=== PATIENT | female | born 1960 | race Caucasian/White ===

== ENCOUNTER 2017-10-05 20:27 | Inpatient (IN) | payer MEDICAID ==
[~2017-10-05] VITALS: Ht 172.7 cm; Wt 84.8 kg
[2017-10-05 20:39] VITALS: BP 103/75
[2017-10-05] MEDS ORDERED: Cyclobenzaprine 10mg Tab ORAL ONE (21:15)
--- NOTE | 2017-10-05 22:00 | Diagnostic Imaging Report ---
EXAM: XR Lumbar Spine, 2 or 3 Views CLINICAL HISTORY: PAIN TECHNIQUE: Frontal and lateral views of the lumbar spine. COMPARISON: No relevant prior studies available. FINDINGS: Vertebrae: Age-indeterminate compression deformity of L1 with approximately 50% height loss. Question fracture through the L2 vertebral body without significant height loss. Multilevel degenerative changes. Mild scoliosis. Normal alignment. Disc spaces: No acute findings. No significant narrowing. Soft tissues: Unremarkable. Vasculature: Phleboliths noted within the pelvis. IMPRESSION: 1. Age-indeterminate compression deformity of L1 with approximately 50% height loss. 2. Question fracture through the L2 vertebral body without significant height loss.
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
[2017-10-05 22:44] LABS: APPEARANCE,URINE CLEAR; BILIRUBIN, URINE NEGATIVE (NEGATIVE); COLOR,URINE PALE YELLOW; GLUCOSE, URINE (UA) NEGATIVE (NEGATIVE); KETONES,URINE NEGATIVE (NEGATIVE); LEUKOCYTE ESTERASE ,URINE NEGATIVE (NEGATIVE); NITRITE,URINE NEGATIVE (NEGATIVE); PH,URINE 6 (4.5-8.0); PROTEIN,URINE NEGATIVE (NEGATIVE); UROBILINOGEN,URINE NORMAL MG/DL (0.0-1.0)
[2017-10-05] MEDS ORDERED: LORazepam 1mg tab ORAL ONE (23:00)
[2017-10-06 00:07] LABS: EOSINOPHILS % (AUTO) 0.7 % (0.0-3.0); HEMATOCRIT 35.6 % (37.0-47.0); HEMOGLOBIN 12.2 G/DL (12.0-16.0); LYMPHOCYTES % (AUTO) 49.6 % (20.0-45.0); MEAN CORPUSCULAR VOLUME 107 FL (80-99); MONOCYTES % (AUTO) 5.4 % (1.0-10.0); NEUTROPHILS % (AUTO) 42.3 % (45.0-75.0); PLATELET COUNT 168 K/UL (150-450); RED BLOOD COUNT 3.32 M/UL (4.20-5.40); RED CELL DISTRIBUTION WIDTH 12.9 % (11.6-14.8); WHITE BLOOD COUNT 9.5 K/UL (4.8-10.8)
[2017-10-06 00:10] LABS: ANION GAP 9 mmol/L (5-15); BLOOD UREA NITROGEN 26 mg/dL (7-18); CALCIUM 7.9 MG/DL (8.5-10.1); CARBON DIOXIDE 27 MMOL/L (21-32); CHLORIDE 105 MMOL/L (98-107); CREATININE 0.9 MG/DL (0.55-1.30); POTASSIUM 3.8 MMOL/L (3.5-5.1); SODIUM 141 MMOL/L (136-145)
[2017-10-06 00:16] LABS: ALANINE AMINOTRANSFERASE 19 U/L (12-78); ALBUMIN 3.4 G/DL (3.4-5.0); ALBUMIN/GLOBULIN RATIO 1.4 (1.0-2.7); ALKALINE PHOSPHATASE 58 U/L (46-116); ASPARTATE AMINO TRANSFERASE 14 U/L (15-37); BILIRUBIN,TOTAL 0.3 MG/DL (0.2-1.0)
[2017-10-06 01:30] VITALS: BP 125/79
[2017-10-06 08:00] VITALS: BP 147/76
[2017-10-06] MEDS ORDERED: Acetaminophen 650 MG SUPP RECTAL PRN ×2 (08:15)
[2017-10-06] MEDS ORDERED: Morphine Sulfate 2mg/ml Inj IVP PRN ×3 (08:30→19:00)
[2017-10-06] MEDS ORDERED: Miralax 17gm pkt ORAL PRN (09:00)
[2017-10-06] MEDS: Docusate 100mg cap ORAL SCH ×3 (09:09→20:06)
[2017-10-06 11:56] VITALS: BP 140/92
[2017-10-06] MEDS: Heparin 5000 units/ml inj SUBQ SCH ×3 (13:23→22:51)
[2017-10-06 16:00] VITALS: BP 168/98
--- NOTE | 2017-10-06 18:11 | History & Physical ---
History and Physical History & Physicial Dictated for Int Med-Dr Marte no. [id number]. Robb Johnson MD Oct 06, 2017 18:11
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
[2017-10-06 20:00] VITALS: BP 155/92
[2017-10-06] MEDS ORDERED: Milk of Magnesia 30ml Ud ORAL PRN (21:00)
[2017-10-06] MEDS: Morphine Sulfate 4mg/ml Inj IVP PRN (22:49)
[2017-10-07] VITALS (10 sets, daily range): BP systolic 145–230; BP diastolic 73–139
[2017-10-07] MEDS: Zolpidem 5mg tab ORAL PRN
[2017-10-07] MEDS: Morphine Sulfate 4mg/ml Inj IVP PRN (03:15)
[2017-10-07] MEDS: Heparin 5000 units/ml inj SUBQ SCH ×3 (05:30→22:49)
[2017-10-07 07:15] LABS: BASOPHILS % (AUTO) 0.8 % (0.0-2.0); EOSINOPHILS % (AUTO) 1.9 % (0.0-3.0); HEMATOCRIT 36.6 % (37.0-47.0); HEMOGLOBIN 12.7 G/DL (12.0-16.0); LYMPHOCYTES % (AUTO) 49.2 % (20.0-45.0); MEAN CORPUSCULAR VOLUME 107 FL (80-99); MONOCYTES % (AUTO) 6.4 % (1.0-10.0); NEUTROPHILS % (AUTO) 41.7 % (45.0-75.0); PLATELET COUNT 140 K/UL (150-450); RED BLOOD COUNT 3.42 M/UL (4.20-5.40); WHITE BLOOD COUNT 6.6 K/UL (4.8-10.8)
[2017-10-07 07:24] LABS: ALANINE AMINOTRANSFERASE 28 U/L (12-78); ALBUMIN 3.4 G/DL (3.4-5.0); ALBUMIN/GLOBULIN RATIO 1.3 (1.0-2.7); ALKALINE PHOSPHATASE 61 U/L (46-116); ANION GAP 8 mmol/L (5-15); ASPARTATE AMINO TRANSFERASE 24 U/L (15-37); BILIRUBIN,TOTAL 0.4 MG/DL (0.2-1.0); BLOOD UREA NITROGEN 21 mg/dL (7-18); CALCIUM 9.1 MG/DL (8.5-10.1); CARBON DIOXIDE 28 MMOL/L (21-32); CHLORIDE 103 MMOL/L (98-107); CREATININE 0.9 MG/DL (0.55-1.30); PHOSPHORUS 3.7 MG/DL (2.5-4.9); POTASSIUM 3.5 MMOL/L (3.5-5.1); SODIUM 139 MMOL/L (136-145)
[2017-10-07 07:40] LABS: INR 0.9 (0.9-1.1)
[2017-10-07] MEDS ORDERED: Norco 5mg/325mg tab ORAL PRN (09:15)
[2017-10-07] MEDS ORDERED: HYDROcodone/Acetamin 10/325 tab ORAL PRN (09:15)
[2017-10-07] MEDS: Docusate 100mg cap ORAL SCH ×2 (09:38→20:04)
--- NOTE | 2017-10-07 12:37 | Consultation ---
History of Present Illness General Date patient seen: Oct 07, 2017 Present Illness Allergies: Coded Allergies: No Known Allergies (Verified , 10/06/10) Patient History Healthcare decision maker Resuscitation status Full Code Advanced Directive on File No Physical Exam Last 24 Hour Vital Signs Date Time Temp Pulse Resp B/P (MAP) Pulse Ox O2 Delivery O2 Flow Rate FiO2 10/07/17 12:00 97.6 62 18 151/96 97 97.6 10/07/17 09:39 97.5 10/07/17 08:00 97.9 72 18 149/73 95 97.9 10/07/17 05:28 70 150/98 10/07/17 04:30 70 150/98 10/07/17 04:00 97.5 72 18 174/108 95 97.5 10/07/17 00:55 185/117 10/07/17 00:00 97.9 73 18 174/106 95 97.9 10/06/17 20:00 98.3 69 19 155/92 97 98.3 10/06/17 16:00 97.6 79 18 168/98 99 Room Air 97.6 Intake and Output 10/06/17 10/07/17 19:00 07:00 Intake Total 600 ml 320 ml Balance 600 ml 320 ml Intake Oral 600 ml 320 ml # Voids 4 3 # Bowel Movements 1 Laboratory Tests Test 10/07/17 05:05 White Blood Count 6.6 K/UL (4.8-10.8) Red Blood Count 3.42 M/UL (4.20-5.40) L Hemoglobin 12.7 G/DL (12.0-16.0) Hematocrit 36.6 % (37.0-47.0) L Mean Corpuscular Volume 107 FL (80-99) H Mean Corpuscular Hemoglobin 37.0 PG (27.0-31.0) H Mean Corpuscular Hemoglobin Concent 34.5 G/DL (32.0-36.0) Red Cell Distribution Width 13.0 % (11.6-14.8) Platelet Count 140 K/UL (150-450) L Mean Platelet Volume 6.1 FL (6.5-10.1) L Neutrophils (%) (Auto) 41.7 % (45.0-75.0) L Lymphocytes (%) (Auto) 49.2 % (20.0-45.0) H Monocytes (%) (Auto) 6.4 % (1.0-10.0) Eosinophils (%) (Auto) 1.9 % (0.0-3.0) Basophils (%) (Auto) 0.8 % (0.0-2.0) Prothrombin Time 9.8 SEC (9.30-11.50) Prothromb Time International Ratio 0.9 (0.9-1.1) Activated Partial Thromboplast Time 25 SEC (23-33) Sodium Level 139 MMOL/L (136-145) Potassium Level 3.5 MMOL/L (3.5-5.1) Chloride Level 103 MMOL/L (98-107) Carbon Dioxide Level 28 MMOL/L (21-32) Anion Gap 8 mmol/L (5-15) Blood Urea Nitrogen 21 mg/dL (7-18) H Creatinine 0.9 MG/DL (0.55-1.30) Estimat Glomerular Filtration Rate > 60 mL/min (>60) Glucose Level 103 MG/DL (74-106) Calcium Level 9.1 MG/DL (8.5-10.1) Phosphorus Level 3.7 MG/DL (2.5-4.9) Magnesium Level 2.1 MG/DL (1.8-2.4) Total Bilirubin 0.4 MG/DL (0.2-1.0) Aspartate Amino Transf (AST/SGOT) 24 U/L (15-37) Alanine Aminotransferase (ALT/SGPT) 28 U/L (12-78) Alkaline Phosphatase 61 U/L (46-116) Total Protein 6.1 G/DL (6.4-8.2) L Albumin 3.4 G/DL (3.4-5.0) Globulin 2.7 g/dL Albumin/Globulin Ratio 1.3 (1.0-2.7) Height (Feet): 5 Height (Inches): 8.00 Weight (Pounds): 187 Medications Current Medications Medications (Trade) Dose Ordered Sig/Yusuf Route PRN Reason Start Time Stop Time Status Last Admin Dose Admin Acetaminophen (Tylenol) 650 mg Q4H PRN ORAL Mild Pain (Pain Scale 1-3) 10/06/17 08:15 11/05/17 08:14 Acetaminophen (Tylenol) 650 mg Q4H PRN ORAL fever 10/06/17 08:15 11/05/17 08:14 Acetaminophen (Tylenol) 650 mg Q4H PRN RECTAL Mild Pain (Pain Scale 1-3) 10/06/17 08:15 11/05/17 08:14 Acetaminophen (Tylenol) 650 mg Q4H PRN RECTAL fever 10/06/17 08:15 11/05/17 08:14 Bisacodyl (Dulcolax) 10 mg HSPRN PRN RECTAL Constipation 10/06/17 21:00 11/05/17 08:59 Carvedilol (Coreg) 3.125 mg Q12H ORAL 10/07/17 06:00 11/06/17 05:59 10/07/17 05:28 Clonidine HCl (Catapres Tab) 0.1 mg Q4H PRN ORAL For High Blood Pressure 10/07/17 00:45 11/06/17 00:44 10/07/17 00:55 Dextrose (Dextrose 50%) 25 ml STAT PRN IV Hypoglycemia 10/06/17 08:30 11/05/17 08:29 Dextrose (Dextrose 50%) 50 ml STAT PRN IV Hypoglycemia 10/06/17 08:30 11/05/17 08:29 Docusate Sodium (Colace) 100 mg EVERY 12 HOURS ORAL 10/06/17 09:00 11/05/17 08:59 10/07/17 09:38 Gabapentin (Neurontin) 1,200 mg THREE TIMES A DAY ORAL 10/07/17 09:00 11/05/17 08:59 10/07/17 09:39 Heparin Sodium (Porcine) (Heparin 5000 units/ml) 5,000 units EVERY 8 HOURS SUBQ 10/06/17 14:00 11/05/17 13:59 10/07/17 05:30 Lidocaine (Xylocaine 5% cream) 1 applic EVERY 6 HOURS PRN TOPIC pain 10/07/17 12:30 11/06/17 12:29 UNV Magnesium Hydroxide (Mom) 30 ml HSPRN PRN ORAL Constipation 10/06/17 21:00 11/05/17 20:59 Ondansetron HCl (Zofran) 4 mg Q6H PRN IVP Nausea & Vomiting 10/06/17 08:30 11/05/17 08:29 Oxycodone/ Acetaminophen (Percocet 5-325) 1 tab Q4H PRN ORAL severe pain 10/07/17 12:30 10/14/17 12:29 UNV Pantoprazole (Protonix) 40 mg ACBREAKFAST ORAL 10/06/17 09:00 11/05/17 08:59 10/07/17 05:28 Polyethylene Glycol (Miralax) 17 gm HSPRN PRN ORAL Constipation 10/06/17 09:00 11/05/17 08:59 Prednisone (predniSONE) 40 mg DAILY ORAL 10/06/17 09:00 11/05/17 08:59 Tizanidine HCl (Zanaflex) 4 mg THREE TIMES A DAY PRN ORAL muscle spasm 10/07/17 12:30 11/05/17 08:59 UNV Zolpidem Tartrate (Ambien) 5 mg HSPRN PRN ORAL Insomnia 10/06/17 18:15 10/13/17 18:14 10/07/17 00:00 Assessment/Plan Assessment/Plan (1) Lumbago (2) Lumbar compression fracture (3) Lumbar radiculopathy (4) Muscle spasm seen dictated. Jevon Jaramillo Oct 07, 2017 12:37
[2017-10-07] MEDS: oxyCODONE HCL/Acetaminophen 5/325mg ORAL PRN ×2 (13:23→20:07)
--- NOTE | 2017-10-07 16:45 | Consultation ---
DATE OF CONSULTATION: 10/07/2017 PAIN MANAGEMENT CONSULTATION CONSULTING PHYSICIAN: Lian Murillo M.D. REFERRING PHYSICIAN: Robb Johnson M.D. PHYSICIAN CUSTOM BIKE BUILDER: ANDREW [place]. CHIEF COMPLAINT: Low back pain. HISTORY OF PRESENT ILLNESS: This is a 57-year-old female, who is being seen on the Med/Surg floor of [facility] for initial comprehensive pain management consultation. The patient is reporting that she has been having low back pain which is constant, chronic pain, rating at 10/10, describing the pain as a sharp shooting pain radiating into bilateral lower extremities, increased with movement. Nothing has been able to relieve the pain. The patient was started on Pemberton 10/325 and 5/325 with minimal pain relief. In the past, she had been on tramadol and Percocet, which she stated the Percocet had helped more sufficiently. An x-ray of the lumbar spine was ordered showing that the patient has a L1 compression fracture at 50% and questionable L2 vertebral body fracture. We will be going for an MRI of lumbar spine without contrast as well. At this time, we were consulted so that the patient will have adequate pain control while here in the hospital. PAST MEDICAL HISTORY: Hypertension, uterine fibroid, diverticulosis, gastrointestinal hemorrhage with history of left footdrop. PAST SURGICAL HISTORY: . SOCIAL HISTORY: She is a smoker. Denies alcohol abuse and IV drug abuse. ALLERGIES: No known drug allergies. MEDICATIONS: Neurontin, Effexor, lorazepam, Ambien, Imodium, naproxen, and Percocet. REVIEW OF SYSTEMS: Denies rash, fever, chills, sweating, dizziness, drowsiness, blurred vision, sore throat, or change in weight. No chest pain, shortness of breath, cough, or palpitations. No nausea, vomiting, diarrhea, or blood in the stool or urine. No bowel or bladder incontinence. No dysuria. The patient is complaining of low back pain. PHYSICAL EXAMINATION: GENERAL: Alert, awake, and oriented. VITAL SIGNS: Blood pressure 151/96, heart rate 62, oxygen saturation is 97%, respiratory rate 18, temperature 97.6 degrees Fahrenheit. HEENT: PERRLA. NECK: Range of motion is full in all directions. No tenderness to paracervical muscles. No adenopathy. LUNGS: Decreased breath sounds bilaterally. HEART: Regular. ABDOMEN: Obese. BACK: Range of motion is decreased in flexion and extension with tenderness to paraspinal muscles. No tenderness of trapezii and rhomboid muscles. EXTREMITIES: Upper extremity range of motion is full in all directions. No cyanosis. No clubbing. No edema. Sensory is intact. Reflexes are not obtainable. No adenopathy. Lower extremity range of motion is decreased due to the patient's pain and condition. Left foot drop noted. No cyanosis. No clubbing. No edema. Sensory is intact. Reflexes are not obtainable. No adenopathy. ASSESSMENT AND PLAN: This is a 57-year-old female with lumbago, lumbar compression fracture, lumbar radiculopathy, muscle spasm. The patient will be discontinued off the Pember[place], started on Percocet 5/325 one tablet every 4 hours as needed for severe pain. The Zanaflex will be increased to 4 mg tablet every 8 hours as needed for muscle spasm. Lidocaine cream will be applied every 6 hours as needed for pain. MRI of the lumbar spine is pending, results of which will be reviewed and we will reassess the patient's pain condition and treatment at that time. The patient was discussed with Dr. Murillo and Dr. Murillo concurred. We will follow the patient. Thank you very much for the courtesy of this consultation. Lian Murillo M.D. ANDREW Rosales DR: Kristi JOB#: [id number] CC: DOUGIE
--- NOTE | 2017-10-07 19:06 | Internal Med Progress Note ---
Subjective Date of Service: Oct 07, 2017 Physician Name Robb Johnson Attending Physician Devante Marte MD Current Medications Medications (Trade) Dose Ordered Sig/Yusuf Route PRN Reason Start Time Stop Time Status Last Admin Dose Admin Acetaminophen (Tylenol) 650 mg Q4H PRN ORAL Mild Pain (Pain Scale 1-3) 10/06/17 08:15 11/05/17 08:14 10/07/17 14:40 Acetaminophen (Tylenol) 650 mg Q4H PRN ORAL fever 10/06/17 08:15 11/05/17 08:14 Acetaminophen (Tylenol) 650 mg Q4H PRN RECTAL Mild Pain (Pain Scale 1-3) 10/06/17 08:15 11/05/17 08:14 Acetaminophen (Tylenol) 650 mg Q4H PRN RECTAL fever 10/06/17 08:15 11/05/17 08:14 Bisacodyl (Dulcolax) 10 mg HSPRN PRN RECTAL Constipation 10/06/17 21:00 11/05/17 08:59 Carvedilol (Coreg) 3.125 mg Q12H ORAL 10/07/17 06:00 11/06/17 05:59 10/07/17 18:31 Clonidine HCl (Catapres Tab) 0.1 mg Q4H PRN ORAL For High Blood Pressure 10/07/17 00:45 11/06/17 00:44 10/07/17 00:55 Dextrose (Dextrose 50%) 25 ml STAT PRN IV Hypoglycemia 10/06/17 08:30 11/05/17 08:29 Dextrose (Dextrose 50%) 50 ml STAT PRN IV Hypoglycemia 10/06/17 08:30 11/05/17 08:29 Diphenhydramine HCl (Benadryl) 25 mg Q6H PRN ORAL Itching 10/07/17 13:30 11/06/17 13:29 10/07/17 14:05 Docusate Sodium (Colace) 100 mg EVERY 12 HOURS ORAL 10/06/17 09:00 11/05/17 08:59 10/07/17 09:38 Gabapentin (Neurontin) 1,200 mg THREE TIMES A DAY ORAL 10/07/17 09:00 11/05/17 08:59 10/07/17 18:29 Lidocaine (Lidoderm 5% PATCH) 1 patch Q24H TDERMAL 10/07/17 18:00 11/06/17 17:59 10/07/17 18:29 Magnesium Hydroxide (Mom) 30 ml HSPRN PRN ORAL Constipation 10/06/17 21:00 11/05/17 20:59 Nicotine (Nicoderm) 1 patch Q24H TDERMAL 10/07/17 14:00 11/06/17 13:59 10/07/17 14:51 Ondansetron HCl (Zofran) 4 mg Q6H PRN IVP Nausea & Vomiting 10/06/17 08:30 11/05/17 08:29 Oxycodone/ Acetaminophen (Percocet 5-325) 1 tab Q4H PRN ORAL Severe Pain (Pain Scale 7-10) 10/07/17 13:09 10/14/17 13:08 10/07/17 13:23 Pantoprazole (Protonix) 40 mg ACBREAKFAST ORAL 10/06/17 09:00 11/05/17 08:59 10/07/17 05:28 Polyethylene Glycol (Miralax) 17 gm HSPRN PRN ORAL Constipation 10/06/17 09:00 11/05/17 08:59 Prednisone (predniSONE) 40 mg DAILY ORAL 10/06/17 09:00 11/05/17 08:59 Tizanidine HCl (Zanaflex) 4 mg THREE TIMES A DAY PRN ORAL muscle spasm 10/07/17 13:00 11/05/17 12:59 10/07/17 14:41 Venlafaxine HCl (Effexor-XR) 75 mg DAILY ORAL 10/08/17 09:00 11/07/17 08:59 Zolpidem Tartrate (Ambien) 5 mg HSPRN PRN ORAL Insomnia 10/06/17 18:15 10/13/17 18:14 10/07/17 00:00 Allergies: Coded Allergies: No Known Allergies (Verified , 10/06/10) ROS Limited/Unobtainable: No Constitutional: Reports: no symptoms HEENT: Reports: no symptoms Cardiovascular: Reports: no symptoms Respiratory: Reports: no symptoms Gastrointestinal/Abdominal: Reports: no symptoms Genitourinary: Reports: no symptoms Neurologic/Psychiatric: Reports: no symptoms Subjective 57 YO F admitted with low back pain and numbness of left leg. Cover for Int Med - Dr Marte. Await MRI lumbar spine Objective Last Vital Signs Date Time Temp Pulse Resp B/P (MAP) Pulse Ox O2 Delivery O2 Flow Rate FiO2 10/07/17 18:31 65 149/75 10/07/17 16:00 97.8 18 97 97.8 10/06/17 16:00 Room Air General Appearance: WD/WN, no apparent distress, alert EENT: PERRL/EOMI, normal ENT inspection Neck: non-tender, normal alignment, supple Cardiovascular: normal peripheral pulses, normal rate, regular rhythm, no gallop/murmur, no JVD Respiratory/Chest: chest wall non-tender, lungs clear, normal breath sounds, no respiratory distress, no accessory muscle use Abdomen: normal bowel sounds, non tender, soft, no organomegaly, no mass Extremities: normal range of motion, non-tender Neurologic: quarter backer II-XII grossly normal, no motor/sensory deficits Skin: normal pigmentation, warm/dry Laboratory Tests Test 10/07/17 05:05 White Blood Count 6.6 K/UL (4.8-10.8) Red Blood Count 3.42 M/UL (4.20-5.40) L Hemoglobin 12.7 G/DL (12.0-16.0) Hematocrit 36.6 % (37.0-47.0) L Mean Corpuscular Volume 107 FL (80-99) H Mean Corpuscular Hemoglobin 37.0 PG (27.0-31.0) H Mean Corpuscular Hemoglobin Concent 34.5 G/DL (32.0-36.0) Red Cell Distribution Width 13.0 % (11.6-14.8) Platelet Count 140 K/UL (150-450) L Mean Platelet Volume 6.1 FL (6.5-10.1) L Neutrophils (%) (Auto) 41.7 % (45.0-75.0) L Lymphocytes (%) (Auto) 49.2 % (20.0-45.0) H Monocytes (%) (Auto) 6.4 % (1.0-10.0) Eosinophils (%) (Auto) 1.9 % (0.0-3.0) Basophils (%) (Auto) 0.8 % (0.0-2.0) Prothrombin Time 9.8 SEC (9.30-11.50) Prothromb Time International Ratio 0.9 (0.9-1.1) Activated Partial Thromboplast Time 25 SEC (23-33) Sodium Level 139 MMOL/L (136-145) Potassium Level 3.5 MMOL/L (3.5-5.1) Chloride Level 103 MMOL/L (98-107) Carbon Dioxide Level 28 MMOL/L (21-32) Anion Gap 8 mmol/L (5-15) Blood Urea Nitrogen 21 mg/dL (7-18) H Creatinine 0.9 MG/DL (0.55-1.30) Estimat Glomerular Filtration Rate > 60 mL/min (>60) Glucose Level 103 MG/DL (74-106) Calcium Level 9.1 MG/DL (8.5-10.1) Phosphorus Level 3.7 MG/DL (2.5-4.9) Magnesium Level 2.1 MG/DL (1.8-2.4) Total Bilirubin 0.4 MG/DL (0.2-1.0) Aspartate Amino Transf (AST/SGOT) 24 U/L (15-37) Alanine Aminotransferase (ALT/SGPT) 28 U/L (12-78) Alkaline Phosphatase 61 U/L (46-116) Total Protein 6.1 G/DL (6.4-8.2) L Albumin 3.4 G/DL (3.4-5.0) Globulin 2.7 g/dL Albumin/Globulin Ratio 1.3 (1.0-2.7) Intake and Output 10/06/17 10/07/17 19:00 07:00 Intake Total 600 ml 320 ml Balance 600 ml 320 ml Intake Oral 600 ml 320 ml # Voids 4 3 # Bowel Movements 1 Assessment/Plan Problem List: (1) Complex regional pain syndrome Assessment & Plan: See pain management note. (2) Lumbar compression fracture Assessment & Plan: Await MRI lumbar spine and ortho consult. See pain management note. (3) Lumbar verterbral fracture, traumatic (4) Left foot drop (5) Diverticulosis Status: not improved Robb Johnson MD Oct 07, 2017 19:06
[2017-10-08] VITALS (8 sets, daily range): BP systolic 116–166; BP diastolic 68–110
[2017-10-08] MEDS: Zolpidem 5mg tab ORAL PRN ×2 (02:11→23:03)
[2017-10-08 06:18] LABS: BASOPHILS % (AUTO) 1.7 % (0.0-2.0); EOSINOPHILS % (AUTO) 1.8 % (0.0-3.0); HEMATOCRIT 37.6 % (37.0-47.0); HEMOGLOBIN 13.6 G/DL (12.0-16.0); LYMPHOCYTES % (AUTO) 47.3 % (20.0-45.0); MEAN CORPUSCULAR VOLUME 109 FL (80-99); MONOCYTES % (AUTO) 5.6 % (1.0-10.0); NEUTROPHILS % (AUTO) 43.5 % (45.0-75.0); PLATELET COUNT 150 K/UL (150-450); RED BLOOD COUNT 3.44 M/UL (4.20-5.40); RED CELL DISTRIBUTION WIDTH 12.9 % (11.6-14.8); WHITE BLOOD COUNT 6.1 K/UL (4.8-10.8)
[2017-10-08 06:46] LABS: ANION GAP 8 mmol/L (5-15); BLOOD UREA NITROGEN 18 mg/dL (7-18); CALCIUM 8.6 MG/DL (8.5-10.1); CARBON DIOXIDE 24 MMOL/L (21-32); CHLORIDE 102 MMOL/L (98-107); CREATININE 0.8 MG/DL (0.55-1.30); POTASSIUM 4.2 MMOL/L (3.5-5.1); SODIUM 133 MMOL/L (136-145)
[2017-10-08] MEDS: LORazepam 1mg tab ORAL PRN ×2 (07:29→16:29)
--- NOTE | 2017-10-08 07:56 | General Progress Note ---
Assessment/Plan Assessment/Plan (1) Lumbago (2) Lumbar compression fracture (3) Lumbar radiculopathy (4) Muscle spasm Patient will be continued on Percocet. MRI pending. D/w Dr. Murillo and he concurred. Subjective Date patient seen: Oct 08, 2017 Time patient seen: 07:00 - am Allergies: Coded Allergies: No Known Allergies (Verified , 10/06/10) Subjective REVIEW OF SYSTEMS: Denies rash, fever, chills, sweating, dizziness, drowsiness, blurred vision, sore throat, or change in weight. No chest pain, shortness of breath, cough, or palpitations. No nausea, vomiting, diarrhea, or blood in the stool or urine. No bowel or bladder incontinence. No dysuria. The patient is complaining of low back pain. SUBJECTIVE: Patient had not been tolerating the pain on the Percocet 5/325mg tabs and due to this was increased to 10/325mg at this time reports that the pain is better tolerated. Will be going for MRI later this morning. Objective Last 24 Hour Vital Signs Date Time Temp Pulse Resp B/P (MAP) Pulse Ox O2 Delivery O2 Flow Rate FiO2 10/08/17 07:31 97.2 10/08/17 06:31 59 135/68 10/08/17 06:18 59 135/68 10/08/17 04:10 97.2 74 18 131/87 98 97.2 10/08/17 01:57 97.7 10/08/17 01:56 161/110 10/08/17 00:47 97.7 68 20 166/110 97 97.7 10/07/17 23:05 67 230/139 10/07/17 23:00 67 212/126 10/07/17 22:52 97.6 10/07/17 22:16 97.6 10/07/17 22:16 97.6 10/07/17 22:16 97.6 10/07/17 22:14 199/113 10/07/17 22:10 67 199/113 10/07/17 20:18 97.6 61 19 145/92 99 97.6 10/07/17 20:14 97.8 10/07/17 20:14 97.8 10/07/17 20:07 97.8 10/07/17 18:31 65 149/75 10/07/17 16:00 97.8 65 18 149/75 97 97.8 10/07/17 12:00 97.6 62 18 151/96 97 97.6 10/07/17 09:39 97.5 10/07/17 08:00 97.9 72 18 149/73 95 97.9 Intake and Output 10/07/17 10/08/17 19:00 07:00 Intake Total 600 ml 780 ml Balance 600 ml 780 ml Intake Oral 600 ml 780 ml # Voids 3 5 Laboratory Tests 10/07/17 23:42: Troponin I 0.000 10/08/17 05:30: Troponin I 0.000, White Blood Count 6.1, Red Blood Count 3.44L, Hemoglobin 13.6 , Hematocrit 37.6, Mean Corpuscular Volume 109H, Mean Corpuscular Hemoglobin 39.4H, Mean Corpuscular Hemoglobin Concent 36.1H, Red Cell Distribution Width 12.9, Platelet Count 150, Mean Platelet Volume 6.6, Neutrophils (%) (Auto) 43.5L , Lymphocytes (%) (Auto) 47.3H, Monocytes (%) (Auto) 5.6, Eosinophils (%) (Auto ) 1.8, Basophils (%) (Auto) 1.7, Sodium Level 133L, Potassium Level 4.2, Chloride Level 102, Carbon Dioxide Level 24, Anion Gap 8, Blood Urea Nitrogen 18 , Creatinine 0.8, Estimat Glomerular Filtration Rate > 60, Glucose Level 133H, Calcium Level 8.6 Height (Feet): 5 Height (Inches): 8.00 Weight (Pounds): 187 Objective GENERAL: Alert, awake, and oriented. HEENT: PERRLA. NECK: Range of motion is full in all directions. No tenderness to paracervical muscles. No adenopathy. LUNGS: Decreased breath sounds bilaterally. HEART: Regular. ABDOMEN: Obese. EXTREMITIES: No cyanosis. No clubbing. No edema. NEURO: No changes. Jevon Jaramillo Oct 08, 2017 07:56
[2017-10-08] MEDS: Venlafaxine XR 75mg cap ORAL SCH (09:29)
[2017-10-08] MEDS: Docusate 100mg cap ORAL SCH ×2 (09:30→21:00)
--- NOTE | 2017-10-08 10:24 | Diagnostic Imaging Report ---
Indication: Chronic low back pain, left foot drop, left leg numbness Technique: Sagittal T1 and T2 fast spin echo, sagittal STIR, axial T1 and T2 fast spin-echo, axial fat saturated T2 FRFSE images of the lumbar spine Comparison: Lumbar spine radiograph dated 10/05/2017 Findings: There is an anterior wedge compression fracture deformity of the L1 vertebral body. This results in approximately 60% height loss anteriorly. There is slight posterior retropulsion, with the superior posterior wall protruding approximately 3 mm into the spinal canal there is a slight degree of marrow edema is a superior endplate, manifested by mildly increased STIR and slightly decreased T1 signal. The remainder of the vertebral body heights are preserved. The remainder of the vertebral body marrow signal is normal. There is mild focal kyphotic deformity at the L1 fracture level. The bony alignment is otherwise normal. The conus medullaris terminates at the level of the L1-2 disc. There is some degenerative change of the T12-L1 disc, likely related to the compression fracture. The posterior retropulsion does not significantly narrow the spinal canal, and there is no significant disc bulge or protrusion. The neural foramina are preserved. At L1-2, no significant disc bulge or protrusion, spinal stenosis, or neural foraminal stenosis. At L2-3, there is mild narrowing of the disc. There is minimal circumferential annular bulge, bilateral facet arthrosis, and mild ligamentum flavum hypertrophy. This results in borderline narrowing of the spinal canal but no significant clumping of the nerve roots. The neural foramina are preserved. At L3-4, the disc space is preserved. There is mild circumferential annular bulge. This, in combination with facet arthrosis results in borderline narrowing of the spinal canal at this level. Facet arthrosis and the bulging disc also result in mild to moderate narrowing of the left neural foramen. The right neural foramen is preserved. At L4-5, there is mild circumferential annular bulge, resulting in borderline narrowing of the spinal canal. There is bilateral facet arthrosis, but no significant foraminal compromise is demonstrated. The disc space is preserved At L5-S1, there is mild circumferential annular bulge. There is also small high intensity zone in the posterior aspect of the disc. This results in borderline narrowing of the spinal canal at this level. There is bilateral facet arthrosis which results in moderate right and mild to moderate left neural foraminal stenosis. The included extraspinal soft tissues are unremarkable Impression: L1 vertebral body wedge compression fracture, with 60% loss of height anteriorly and some posterior retropulsion. Per the technologist's notes, this occurred in this past December. A mild degree of edema near the superior endplate most likely represents residual edema from the original acute injury. However, the possibility of acute progression cannot be excluded. Correlate with clinical findings. Comparison with prior imaging may be useful Multilevel degenerative changes, as detailed on a level by level basis above
[2017-10-08] MEDS: Heparin 5000 units/ml inj SUBQ SCH ×2 (12:02→22:00)
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
[2017-10-09] VITALS: BP 139/98
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
[2017-10-09] MEDS: LORazepam 1mg tab ORAL PRN ×2 (02:09→17:33)
[2017-10-09 04:00] VITALS: BP 140/97
[2017-10-09 08:00] VITALS: BP 121/72
--- NOTE | 2017-10-09 08:12 | General Progress Note ---
Assessment/Plan Assessment/Plan (1) Lumbago (2) Lumbar compression fracture (3) Lumbar radiculopathy (4) Muscle spasm Patient will be continued on Percocet. We recommend neurosurgeon consultation. D/w Dr. Murillo and he concurred. Subjective Date patient seen: Oct 09, 2017 Time patient seen: 07:15 - am Allergies: Coded Allergies: No Known Allergies (Verified , 10/06/10) Subjective REVIEW OF SYSTEMS: Denies rash, fever, chills, sweating, dizziness, drowsiness, blurred vision, sore throat, or change in weight. No chest pain, shortness of breath, cough, or palpitations. No nausea, vomiting, diarrhea, or blood in the stool or urine. No bowel or bladder incontinence. No dysuria. The patient is complaining of low back pain. SUBJECTIVE: Pain has been tolerated on the Percocet. She has been having reduction on pain from a 9/10 to a 3/10. MRI was reviewed and patient was seen by Ortho who recommended spinal surgery consultation. Objective Last 24 Hour Vital Signs Date Time Temp Pulse Resp B/P (MAP) Pulse Ox O2 Delivery O2 Flow Rate FiO2 10/09/17 05:51 66 116/68 10/09/17 04:00 97.7 66 19 140/97 98 Room Air 97.7 10/09/17 00:00 98.1 71 18 139/98 97 Room Air 98.1 10/08/17 23:55 Nasal Cannula 4.0 32 10/08/17 23:54 97 Nasal Cannula 4.0 36 10/08/17 20:00 98.2 71 19 140/90 97 Room Air 98.2 10/08/17 18:32 151/99 10/08/17 18:21 97.8 10/08/17 17:30 73 151/99 10/08/17 17:22 97.8 10/08/17 17:22 64 128/87 10/08/17 16:03 64 18 128/87 98 Room Air 10/08/17 13:06 97.8 10/08/17 12:07 97.8 10/08/17 12:00 97.9 61 20 147/92 99 Room Air 97.9 Intake and Output 10/08/17 10/09/17 19:00 07:00 Intake Total 360 ml 700 ml Balance 360 ml 700 ml Intake Oral 360 ml 700 ml # Voids 4 3 Laboratory Tests 10/08/17 11:39: Troponin I 0.000 Height (Feet): 5 Height (Inches): 8.00 Weight (Pounds): 187 Objective GENERAL: Alert, awake, and oriented. HEENT: PERRLA. NECK: Range of motion is full in all directions. No tenderness to paracervical muscles. No adenopathy. LUNGS: Decreased breath sounds bilaterally. HEART: Regular. ABDOMEN: Obese. EXTREMITIES: No cyanosis. No clubbing. No edema. NEURO: No changes. Procedure: MRI L Spine no Contrast Indication: Chronic low back pain, left foot drop, left leg numbness Technique: Sagittal T1 and T2 fast spin echo, sagittal STIR, axial T1 and T2 fast spin-echo, axial fat saturated T2 FRFSE images of the lumbar spine Comparison: Lumbar spine radiograph dated 10/05/2017 Findings: There is an anterior wedge compression fracture deformity of the L1 vertebral body. This results in approximately 60% height loss anteriorly. There is slight posterior retropulsion, with the superior posterior wall protruding approximately 3 mm into the spinal canal there is a slight degree of marrow edema is a superior endplate, manifested by mildly increased STIR and slightly decreased T1 signal. The remainder of the vertebral body heights are preserved. The remainder of the vertebral body marrow signal is normal. There is mild focal kyphotic deformity at the L1 fracture level. The bony alignment is otherwise normal. The conus medullaris terminates at the level of the L1-2 disc. There is some degenerative change of the T12-L1 disc, likely related to the compression fracture. The posterior retropulsion does not significantly narrow the spinal canal, and there is no significant disc bulge or protrusion. The neural foramina are preserved. At L1-2, no significant disc bulge or protrusion, spinal stenosis, or neural foraminal stenosis. At L2-3, there is mild narrowing of the disc. There is minimal circumferential annular bulge, bilateral facet arthrosis, and mild ligamentum flavum hypertrophy. This results in borderline narrowing of the spinal canal but no significant clumping of the nerve roots. The neural foramina are preserved. At L3-4, the disc space is preserved. There is mild circumferential annular bulge. This, in combination with facet arthrosis results in borderline narrowing of the spinal canal at this level. Facet arthrosis and the bulging disc also result in mild to moderate narrowing of the left neural foramen. The right neural foramen is preserved. At L4-5, there is mild circumferential annular bulge, resulting in borderline narrowing of the spinal canal. There is bilateral facet arthrosis, but no significant foraminal compromise is demonstrated. The disc space is preserved At L5-S1, there is mild circumferential annular bulge. There is also small high intensity zone in the posterior aspect of the disc. This results in borderline narrowing of the spinal canal at this level. There is bilateral facet arthrosis which results in moderate right and mild to moderate left neural foraminal stenosis. The included extraspinal soft tissues are unremarkable Impression: L1 vertebral body wedge compression fracture, with 60% loss of height anteriorly and some posterior retropulsion. Per the technologist's notes, this occurred in this past December. A mild degree of edema near the superior endplate most likely represents residual edema from the original acute injury. However, the possibility of acute progression cannot be excluded. Correlate with clinical findings. Comparison with prior imaging may be useful Multilevel degenerative changes, as detailed on a level by level basis above Jevon Jaramillo Oct 09, 2017 08:12
[2017-10-09] MEDS: Docusate 100mg cap ORAL SCH (09:00)
[2017-10-09] MEDS: Venlafaxine XR 75mg cap ORAL SCH (09:38)
[2017-10-09] MEDS: Heparin 5000 units/ml inj SUBQ SCH (09:41)
[2017-10-09 12:00] VITALS: BP 152/107
[2017-10-09] MEDS ORDERED: BENADRYL25 MG ORAL (12:53)
[2017-10-09] MEDS ORDERED: ZANAFLEX4 MG ORAL (12:53)
[2017-10-09] MEDS ORDERED: ZOFRAN4 M3 ORAL (12:53)
[2017-10-09] MEDS ORDERED: LIDODERM700 M1 TDERMAL (12:53)
[2017-10-09] MEDS ORDERED: PERCOCET 10-321 EACH ORAL (12:53)
[2017-10-09] MEDS ORDERED: COREG3.125 MG ORAL (12:53)
--- NOTE | 2017-10-09 12:55 | Pulmonology Progress Note ---
Assessment/Plan Problems: (1) Lumbar verterbral fracture, traumatic (2) Left foot drop Assessment/Plan neuro surgery evaluation [facility] dc with close f/u with PCP prescription given. Subjective Interval Events: all reviewed, othro recommeneded neuro surgery consult. we dont have inhous Allergies: Coded Allergies: No Known Allergies (Verified , 10/06/10) Objective Last 24 Hour Vital Signs Date Time Temp Pulse Resp B/P (MAP) Pulse Ox O2 Delivery O2 Flow Rate FiO2 10/09/17 12:45 152/107 10/09/17 10:38 97.7 10/09/17 09:39 97.7 10/09/17 09:39 66 116/68 10/09/17 08:00 97.6 68 20 121/72 96 Room Air 97.6 10/09/17 05:51 66 116/68 10/09/17 04:00 97.7 66 19 140/97 98 Room Air 97.7 10/09/17 00:00 98.1 71 18 139/98 97 Room Air 98.1 10/08/17 23:55 Nasal Cannula 4.0 32 10/08/17 23:54 97 Nasal Cannula 4.0 36 10/08/17 20:00 98.2 71 19 140/90 97 Room Air 98.2 10/08/17 18:32 151/99 10/08/17 17:30 73 151/99 10/08/17 17:22 97.8 10/08/17 17:22 64 128/87 10/08/17 16:03 64 18 128/87 98 Room Air 10/08/17 13:06 97.8 Intake and Output 10/08/17 10/09/17 19:00 07:00 Intake Total 360 ml 700 ml Balance 360 ml 700 ml Intake Oral 360 ml 700 ml # Voids 4 3 General Appearance: WD/WN HEENT: normocephalic, atraumatic Respiratory/Chest: chest wall non-tender, lungs clear Breasts: no masses Cardiovascular: normal peripheral pulses Abdomen: normal bowel sounds, soft, non tender Current Medications Medications (Trade) Dose Ordered Sig/Yusuf Route PRN Reason Start Time Stop Time Status Last Admin Dose Admin Acetaminophen (Tylenol) 650 mg Q4H PRN ORAL Mild Pain (Pain Scale 1-3) 10/06/17 08:15 11/05/17 08:14 10/07/17 20:14 Acetaminophen (Tylenol) 650 mg Q4H PRN ORAL fever 10/06/17 08:15 11/05/17 08:14 Acetaminophen (Tylenol) 650 mg Q4H PRN RECTAL Mild Pain (Pain Scale 1-3) 10/06/17 08:15 11/05/17 08:14 Acetaminophen (Tylenol) 650 mg Q4H PRN RECTAL fever 10/06/17 08:15 11/05/17 08:14 Bisacodyl (Dulcolax) 10 mg HSPRN PRN RECTAL Constipation 10/06/17 21:00 11/05/17 08:59 Carvedilol (Coreg) 3.125 mg Q12H ORAL 10/07/17 06:00 11/06/17 05:59 10/09/17 09:39 Clonidine HCl (Catapres Tab) 0.1 mg Q4H PRN ORAL For High Blood Pressure 10/07/17 22:00 11/06/17 21:59 10/09/17 12:45 Dextrose (Dextrose 50%) 25 ml STAT PRN IV Hypoglycemia 10/06/17 08:30 11/05/17 08:29 Dextrose (Dextrose 50%) 50 ml STAT PRN IV Hypoglycemia 10/06/17 08:30 11/05/17 08:29 Diphenhydramine HCl (Benadryl) 50 mg Q4H PRN ORAL Itching 10/08/17 10:40 11/07/17 10:39 10/09/17 09:39 Docusate Sodium (Colace) 100 mg EVERY 12 HOURS ORAL 10/06/17 09:00 11/05/17 08:59 10/08/17 09:30 Gabapentin (Neurontin) 1,200 mg THREE TIMES A DAY ORAL 10/07/17 09:00 11/05/17 08:59 10/09/17 12:52 Heparin Sodium (Porcine) (Heparin 5000 units/ml) 5,000 units EVERY 12 HOURS SUBQ 10/07/17 22:32 11/06/17 22:31 10/09/17 09:41 Lidocaine (Lidoderm 5% PATCH) 1 patch Q24H TDERMAL 10/07/17 18:00 11/06/17 17:59 10/08/17 17:22 Lorazepam (Ativan) 1 mg Q8H PRN ORAL For Anxiety 10/08/17 03:00 10/15/17 02:59 10/09/17 02:09 Magnesium Hydroxide (Mom) 30 ml HSPRN PRN ORAL Constipation 10/06/17 21:00 11/05/17 20:59 10/08/17 23:03 Nicotine (Nicoderm) 1 patch Q24H TDERMAL 10/07/17 14:00 11/06/17 13:59 10/09/17 12:52 Ondansetron HCl (Zofran ODT) 4 mg Q6H PRN ORAL Nausea & Vomiting 10/08/17 19:15 11/07/17 19:14 Oxycodone/ Acetaminophen (Percocet 10/325) 1 tab Q4H PRN ORAL Severe Pain (Pain Scale 7-10) 10/07/17 22:45 10/14/17 22:44 10/09/17 09:39 Polyethylene Glycol (Miralax) 17 gm HSPRN PRN ORAL Constipation 10/06/17 09:00 11/05/17 08:59 Tizanidine HCl (Zanaflex) 4 mg THREE TIMES A DAY PRN ORAL muscle spasm 10/07/17 13:00 11/05/17 12:59 10/08/17 12:07 Venlafaxine HCl (Effexor-XR) 75 mg DAILY ORAL 10/08/17 09:00 11/07/17 08:59 10/09/17 09:38 Zolpidem Tartrate (Ambien) 5 mg HSPRN PRN ORAL Insomnia 10/06/17 18:15 10/13/17 18:14 10/08/17 23:03 Deshawn Bowman MD Oct 09, 2017 12:55
[2017-10-09 16:30] VITALS: BP 142/96
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
== END 2017-10-09 19:25 | disposition home or self-care (01) | DRG 347 ==
LOC: EDBD 20:27 → EMR 21:33 → 4W 23:04 → EDBEDREQ 23:50 → 4W 10-06 01:48 → 3E 10-06 14:59 → 2E 10-07 23:21 → 3E 10-08 00:36 → 4E 10-09 11:17
DX: M54.16 Radiculopathy, lumbar region (principal); G90.59 Complex regional pain syndrome I of other specified site; D25.9 Leiomyoma of uterus, unspecified; M21.372 Foot drop, left foot; S32.010D Wedge compression fracture of first lumbar vertebra, subsequent encounter for fracture with routine healing; Y09 Assault by unspecified means; K57.90 Diverticulosis of intestine, part unspecified, without perforation or abscess without bleeding; F17.200 Nicotine dependence, unspecified, uncomplicated
CPT/HCPCS: 36415; 72020; 72148; 80048; 80053; 80307; 81001; 83735; 84100; 84484; 85025; 85610; 85730; 87081; 94760; 99285; J2405

== ENCOUNTER 2017-10-16 23:55 | Emergency (ER) | payer MEDICAID ==
[~2017-10-16] VITALS: Ht 172.7 cm; Wt 81.6 kg
[~2017-10-16 23:55] MED LIST: BENADRYL25 MG ORAL; COREG3.125 MG ORAL; LIDODERM700 M1 TDERMAL; PERCOCET 10-321 EACH ORAL; ZANAFLEX4 MG ORAL; ZOFRAN4 M3 ORAL
[2017-10-17] MEDS ORDERED: UNOBMED (00:17)
[2017-10-17 00:49] VITALS: BP 0/0
--- NOTE | 2017-10-18 06:11 | Emergency Room Report ---
History of Present Illness General Chief Complaint: Behavioral Complaint Source: Patient Present Illness HPI Patient is a 57-year-old female presented after increased agitation. Patient was noted to be markedly combative. Patient states that she had prior history of neuropathy and been having problems due to chronic regional pain syndrome. The patient states she had previously been at this facility. Allergies: Coded Allergies: No Known Allergies (Verified , 10/06/10) Patient History Past Medical History: see triage record Reviewed Nursing Documentation: PMH: Agreed; PSxH: Agreed Nursing Documentation-PMH Hx Cardiac Problems: No Hx Gastrointestinal Problems: No History Of Psychiatric Problem: Yes Hx Neurological Problems: No Review of Systems All Other Systems: negative except mentioned in HPI Physical Exam Vital Signs Date Time Temp Pulse Resp B/P (MAP) Pulse Ox O2 Delivery O2 Flow Rate FiO2 10/16/17 23:51 98.6 76 16 151/125 98 Room Air 98.6 Sp02 EP Interpretation: reviewed, normal General Appearance: normal inspection, well appearing, no apparent distress, alert, GCS 15, Chronically Ill Head: atraumatic ENT: normal ENT inspection, hearing grossly normal, normal voice Neck: normal inspection, full range of motion, supple, no bony tend Respiratory: normal inspection, lungs clear, normal breath sounds, no respiratory distress, no retraction, no wheezing Cardiovascular #1: regular rate, rhythm, no edema Gastrointestinal: normal inspection, normal bowel sounds, non tender, soft, no guarding, no hernia Genitourinary: no CVA tenderness Musculoskeletal: normal inspection, back normal, normal range of motion Neurologic: normal inspection, alert, oriented x3, responsive, hand assembler for puller over III-XII nml as tested, speech normal Psychiatric: normal inspection, judgement/insight normal, mood/affect normal Skin: normal inspection, normal color, no rash Medical Decision Making Diagnostic Impression: Primary Impression: Complex regional pain syndrome ER Course Patient presented for agitation. Differential diagnosis included was not limited to alcohol abuse, benzodiazepine abuse, bipolar disorder, schizophrenia , among others. Patient has a benign exam and does not appear to require any laboratory testing at this time. The patient was seen and examined and subsequently eloped without notifying staff. There did not appear to be any emergency medical condition at that time and patient appeared to be capable self care. Last Vital Signs Date Time Temp Pulse Resp B/P (MAP) Pulse Ox O2 Delivery O2 Flow Rate FiO2 10/17/17 00:49 0/0 7/3/18 23:51 98.6 76 16 98 Room Air 98.6 Status: improved Disposition: HOME, SELF-CARE Condition: Stable Referrals: [facility],REFERR[facility] (PCP) Je Cooney MD Oct 18, 2017 06:11
== END 2017-10-17 00:50 | disposition home or self-care (01) ==
LOC: EDBD 23:55 → EMR 10-17 00:31
DX: G90.50 Complex regional pain syndrome I, unspecified (principal)
CPT/HCPCS: 99283